=== PATIENT | male | born 1960 | race Two or more races ===

== ENCOUNTER 2017-09-27 23:22 | Emergency (ER) | payer SELFPAY ==
[~2017-09-27] VITALS: Ht 170.2 cm; Wt 95.3 kg
[2017-09-28 00:50] LABS: EOSINOPHILS % (AUTO) 0.5 % (0.0-3.0); HEMATOCRIT 36.6 % (42.0-52.0); HEMOGLOBIN 12.2 G/DL (14.2-18.0); LYMPHOCYTES % (AUTO) 42.4 % (20.0-45.0); MEAN CORPUSCULAR VOLUME 86 FL (80-99); MONOCYTES % (AUTO) 6.1 % (1.0-10.0); PLATELET COUNT 154 K/UL (150-450); RED BLOOD COUNT 4.28 M/UL (4.70-6.10); RED CELL DISTRIBUTION WIDTH 17.5 % (11.6-14.8); WHITE BLOOD COUNT 4.8 K/UL (4.8-10.8)
[2017-09-28 01:01] LABS: ANION GAP 11 mmol/L (5-15); BLOOD UREA NITROGEN 5 mg/dL (7-18); CALCIUM 8.2 MG/DL (8.5-10.1); CARBON DIOXIDE 27 MMOL/L (21-32); CHLORIDE 98 MMOL/L (98-107); CREATININE 0.6 MG/DL (0.55-1.30); POTASSIUM 3.6 MMOL/L (3.5-5.1); SODIUM 136 MMOL/L (136-145)
[2017-09-28 01:30] VITALS: BP 121/77
[2017-09-28 04:32] VITALS: BP 117/77
--- NOTE | 2017-09-28 04:40 | Emergency Room Report ---
History of Present Illness General Chief Complaint: Alcohol Intoxication Source: EMS Present Illness HPI Patient was found on the street Brought in by paramedics Initially the patient is sluggish to respond He does admit to drinking alcohol however it was difficult to obtain further history Unknown regarding any trauma Patient was brought in by paramedics In [place] run No reports of vomiting or diarrhea Allergies: Coded Allergies: UNABLE TO ASSESS (Unverified , 09/27/17) Patient History Limited by: medical condition Past Medical History: see triage record Pertinent Family History: unable to obtain Reviewed Nursing Documentation: PMH: Agreed, PSxH: Agreed Nursing Documentation-PMH Past Medical History Deferred: Pt Cognitively Impaired Past Medical History: Deferred Review of Systems All Other Systems: limited - Other than the ones mentioned in the history of present illness all others are reviewed however they do stay limited due to the patient's mental status Physical Exam Vital Signs Date Time Temp Pulse Resp B/P (MAP) Pulse Ox O2 Delivery O2 Flow Rate FiO2 09/27/17 23:16 98.0 88 16 115/78 95 Room Air 98.1 Sp02 EP Interpretation: reviewed, normal General Appearance: no apparent distress Head: normocephalic, atraumatic Eyes: bilateral eye PERRL ENT: normal pharynx, no angioedema Neck: full range of motion, supple Respiratory: lungs clear, normal breath sounds Cardiovascular #1: regular rate, rhythm, no edema Gastrointestinal: non tender, soft Musculoskeletal: normal inspection Neurologic: alert, responsive, manager trainee III-XII nml as tested Skin: no rash Lymphatic: no adenopathy Medical Decision Making Diagnostic Impression: Primary Impression: Acute alcoholic intoxication ER Course Patient does present with complaints and reports of alcohol ingestion However initially difficult to obtain full history Therefore a workup including CT head and baseline blood test were obtained CT head does not show any acute disease Patient's blood work is at baseline level patient continues to symptomatically improved and becomes more oriented And will be dispositioned once more awake and ambulatory Patient has become more awake and alert Is ambulatory to the restroom no signs of deficit Patient did complain of some epigastric discomfort after awakening Was provided with GI cocktail feels improved Baseline blood work again normal Patient will have close outpatient follow Labs Test 09/28/17 00:26 White Blood Count 4.8 K/UL (4.8-10.8) Red Blood Count 4.28 M/UL (4.70-6.10) Hemoglobin 12.2 G/DL (14.2-18.0) Hematocrit 36.6 % (42.0-52.0) Mean Corpuscular Volume 86 FL (80-99) Mean Corpuscular Hemoglobin 28.6 PG (27.0-31.0) Mean Corpuscular Hemoglobin Concent 33.3 G/DL (32.0-36.0) Red Cell Distribution Width 17.5 % (11.6-14.8) Platelet Count 154 K/UL (150-450) Mean Platelet Volume 8.8 FL (6.5-10.1) Neutrophils (%) (Auto) 49.0 % (45.0-75.0) Lymphocytes (%) (Auto) 42.4 % (20.0-45.0) Monocytes (%) (Auto) 6.1 % (1.0-10.0) Eosinophils (%) (Auto) 0.5 % (0.0-3.0) Basophils (%) (Auto) 2.0 % (0.0-2.0) Sodium Level 136 MMOL/L (136-145) Potassium Level 3.6 MMOL/L (3.5-5.1) Chloride Level 98 MMOL/L (98-107) Carbon Dioxide Level 27 MMOL/L (21-32) Anion Gap 11 mmol/L (5-15) Blood Urea Nitrogen 5 mg/dL (7-18) Creatinine 0.6 MG/DL (0.55-1.30) Estimat Glomerular Filtration Rate > 60 mL/min (>60) Glucose Level 119 MG/DL (74-106) Calcium Level 8.2 MG/DL (8.5-10.1) CT/MRI/US Diagnostic Results CT/MRI/US Diagnostic Results : Impression CT head: no acute disease Last Vital Signs Date Time Temp Pulse Resp B/P (MAP) Pulse Ox O2 Delivery O2 Flow Rate FiO2 09/27/17 23:16 98.0 88 16 115/78 95 Room Air 98.1 Status: improved Disposition: HOME, SELF-CARE Condition: Improved Scripts Famotidine (PEPCID) 40 Mg Tablet 40 MG PO DAILY, #7 TAB 0 Refills Prov: NICKI SARGENT D.O. 09/28/17 Referrals: NOT CHOSEN [facility]/,REFERRING (PCP) Additional Instructions: Patient is provided with the discharge instructions notified to follow up with primary doctor in the next 2-3 days otherwise return to the er with any worsening symptoms. Please note that this report is being documented using [employer] technology. This can lead to erroneous entry secondary to incorrect interpretation by the dictating instrument. NICKI SARGENT D.O. Sep 28, 2017 04:40
[2017-09-28] MEDS ORDERED: PEPCID40 MG PO (05:07)
[2017-09-28 05:15] VITALS: BP 121/79
[2017-09-28] MEDS ORDERED: Lidocaine 2% Visc 15ml soln ORAL ONE (05:15)
[2017-09-28] MEDS ORDERED: Mylanta II UD 30ml ORAL ONE (05:15)
[2017-09-28] MEDS ORDERED: Dicyclomine HCl 10mg/5ml oral soln ORAL ONE (05:15)
[2017-09-28 05:45] VITALS: BP 121/79
--- NOTE | 2017-09-28 09:36 | Diagnostic Imaging Report ---
Indication: Altered mental status Technique: Contiguous 5 mm thick transaxial imaging of the head obtained in a Siemens Sensation [address] scanner. Soft tissue and bone windows generated. Automatic Exposure Control was utilized. Total Dose length Product (DLP): 1330.[address] Dose Index Volume (CTDIvol): 70.38 mGy Comparison: none Findings: The size and configuration of the cortical sulci, basal cisterns, and ventricles are within normal limits for age. Mild generalized atrophy is present but is age appropriate. There is no mass effect, midline shift, or edema identified. There is no evidence of acute hemorrhage or abnormal intra-axial or extra-axial fluid collections. The bones and soft tissues are unremarkable. There is an old left medial orbital wall fracture. Impression: No mass effect, edema or acute bleed. Other incidental findings as above. [facility] has communicated the preliminary results to the Emergency Department. Their findings are largely concordant with this report. The CT scanner at [facility] is accredited by the [employer] [employer] and the scans are performed using dose optimization techniques as appropriate to a performed exam including Automatic Exposure control.
== END 2017-09-28 05:45 | disposition home or self-care (01) ==
LOC: EDBD 23:22 → EMR 23:46
DX: F10.129 Alcohol abuse with intoxication, unspecified (principal); R41.82 Altered mental status, unspecified
CPT/HCPCS: 36415; 70450; 80048; 85025; 99284